=== PATIENT | female | born 1970 | race African-American/Black ===

== ENCOUNTER 2020-10-27 18:19 | Emergency (ER) | payer OTHER, SELFPAY | END 2020-10-27 20:48 | disposition home or self-care (01) | LOC: CSHERS 18:19 | DX: L03.115 Cellulitis of right lower limb (principal); M25.572 Pain in left ankle and joints of left foot; E11.9 Type 2 diabetes mellitus without complications; I10 Essential (primary) hypertension; F17.210 Nicotine dependence, cigarettes, uncomplicated; W19.XXXA Unspecified fall, initial encounter ==